=== PATIENT | male | born 1940 | race Two or more races ===

== ENCOUNTER 2020-03-28 12:32 | Day surgery (SDC) | payer OTHER ==
[~2020-03-28] VITALS: Ht 172.7 cm; Wt 68.0 kg
[2020-03-28 13:03] VITALS: BP 138/74
[2020-03-28 13:13] LABS: Eosinophils # (auto) 0 10 ^3/uL (0-0.8); Monocytes # (auto) 0.7 10 ^3/uL (0-1.3)
[2020-03-28 13:15] LABS: Basophils # (auto) 0 10 ^3/uL (0-0.2); Basophils % (auto) 0.7 % (0.0-2.0); Eosinophils % (auto) 0.4 % (0.0-7.0); Hematocrit 36.9 % (41.0-53.0); Hemoglobin 11.3 g/dL (13.5-17.5); Lymphocytes # (auto) 1.4 10 ^3/uL (0.4-5.4); Lymphocytes % (auto) 19.9 % (10.0-50.0); Mean Corpuscular Hemoglobin 20.8 pg (28.0-32.0); Mean Corpuscular Hgb Conc. 30.7 g/dL (32.0-36.0); Mean Corpuscular Volume 67.7 fL (80.0-100.0); Monocytes % (auto) 10.1 % (0.0-12.0); Neutrophils # (auto) 4.8 10 ^3/uL (1.6-8.6); Neutrophils % (auto) 68.9 % (37.0-80.0); Nucleated Red Blood Cells % 0.1 %; Platelet Count (auto) 168 10^3/uL (140-450); Red Blood Cells 5.45 10^6/uL (4.5-5.90); White Blood Cell 6.9 10^3/uL (4.4-10.8)
[2020-03-28 13:25] LABS: INR 1.07 (0.9-1.15); Partial Thromboplastin Time 26.4 sec (23.0-31.2)
[2020-03-28 13:31] LABS: Calcium 9.3 mg/dL (8.5-10.1); Magnesium 2.2 mg/dL (1.6-2.6); Potassium 4.4 mmol/L (3.5-5.1)
[2020-03-28 13:36] LABS: BUN/Creatinine Ratio 16.2; Bilirubin, Total 1.4 mg/dL (0.2-1.0); Total Protein 7.6 g/dL (6.4-8.2)
[2020-03-28] MEDS ORDERED: MIDAZOLAM HCL 1MG/1ML-2 ML VIAL ONE (14:45)
[2020-03-28] MEDS ORDERED: fentaNYL CITRATE 100 MCG/2 ML VL ONE (14:45)
[2020-03-28] MEDS ORDERED: ANGIOMAX 250 MG VIAL IV ONE (14:45)
[2020-03-28] MEDS ORDERED: HEPARIN SODIUM (PORCINE) 5000 UNITS/ML 1ML VIAL ONE (14:45)
[2020-03-28] MEDS ORDERED: VERAPAMIL 2.5MG/ML INJ 2ML VIAL IV ONE (14:45)
[2020-03-28] MEDS ORDERED: LIDOCAINE 2%HCL (LOCAL ANESTH.) INJ 20ML MDV ONE (14:46)
[2020-03-28] MEDS ORDERED: SODIUM CHL 0.9% 0 ML ONE (14:46)
[2020-03-28] MEDS ORDERED: IODIXANOL 320MG/ML 100ML BTL IV ONE (14:46)
[2020-03-28] MEDS ORDERED: ASPirin 81 mg TAB ONE (15:24)
--- NOTE | 2020-03-28 17:45 | NUR ---
Pt. discharged to home in c/o and male family member. States will f/u with Dr. Brewster as instructed. Ambulated to POV with no difficulty. No problems anticipated.
== END 2020-03-28 17:45 | disposition home or self-care (01) ==
LOC: EEVIPCON 12:32 → ER 12:32 → CATH 12:33 → ER 15:18 → CATH 17:45
PROVIDERS: ATTEND Internal Medicine
DX: R94.39 Abnormal result of other cardiovascular function study (principal); I25.10 Atherosclerotic heart disease of native coronary artery without angina pectoris; I49.3 Ventricular premature depolarization; E11.9 Type 2 diabetes mellitus without complications; R68.89 Other general symptoms and signs; I10 Essential (primary) hypertension; Z79.82 Long term (current) use of aspirin; Z79.84 Long term (current) use of oral hypoglycemic drugs; Z79.899 Other long term (current) drug therapy; Z98.890 Other specified postprocedural states
CPT/HCPCS: 36415; 71046; 80053; 80061; 82962; 83036; 83735; 84154; 85025; 85610; 85730; 87426; 93005; 93306; 93458; C1769; C1894; J1644; J2250; J3010; Q9967; 99152; 99153